=== PATIENT | male | born 1980 | race Caucasian/White ===

== ENCOUNTER → 2020-08-21 10:35 | Outpatient (CLI) | payer OTHER, SELFPAY ==
[2020-08-21] MEDS: COVID-19 VACC(MODERNA-1)/PF 100 MCG/0.5 ML VIAL IM (10:44)
== END ==
PROVIDERS: Visit Provider Internal Medicine
DX: Z23 Encounter for immunization (principal)
CPT/HCPCS: 0011A; 91301

== ENCOUNTER → 2020-09-18 13:02 | Outpatient (CLI) | payer OTHER, SELFPAY ==
[2020-09-18] MEDS: COVID-19 VACC #2, MRNA(MOD) 100 MCG/0.5 ML VIAL IM (13:06)
== END ==
PROVIDERS: Visit Provider Internal Medicine
DX: Z23 Encounter for immunization (principal)
CPT/HCPCS: 0012A; 91301

== ENCOUNTER → 2023-01-26 18:12 | Outpatient (CLI) | payer OTHER, SELFPAY ==
--- NOTE | 2023-01-26 18:14 | DI.RAD.S_ITS ---
PROCEDURE: XR HIP W PEL IF DONE LT 2V INDICATIONS: Left hip pain TECHNIQUE: 2 views of the hip were acquired. COMPARISON: None. FINDINGS: Bones: Minimal bilateral hip arthrosis. No displaced fracture or dislocation. Soft tissues: No suspicious calcifications. Suspected pelvic phleboliths. IMPRESSION: No acute radiographic abnormality. Minimal hip degenerative changes. If there is high concern for further derangement, consider MRI evaluation. Dictated by: Mat Bee M.D. on 01/27/2023 at 8:34 Approved by: Mat Bee M.D. on 01/27/2023 at 8:35
== END ==
PROVIDERS: Referring Provider Family Medicine; Visit Provider Family Medicine
DX: M25.552 Pain in left hip (principal)
CPT/HCPCS: 73502

== ENCOUNTER → 2023-12-07 | Outpatient (CLI) | payer OTHER, SELFPAY ==
--- NOTE | 2023-12-07 14:45 | DI.RAD.S_ITS ---
PROCEDURE: XR FOOT LT MIN 3V INDICATIONS: left foot swelling, pain in distal 1st metatarsal TECHNIQUE: 3 views of the foot were acquired. COMPARISON: None. FINDINGS: Bones: No fractures or dislocations. No suspicious bony lesions. Soft tissues: No tibiotalar joint effusion. Achilles tendon appears normal. IMPRESSION: No acute bony abnormality. Dictated by: Yared Moore M.D. on 12/07/2023 at 17:04 Approved by: Yared Moore M.D. on 12/07/2023 at 17:04
== END ==
LOC: RAD 14:44
PROVIDERS: Referring Provider Family Medicine; Visit Provider Family Medicine
DX: M79.672 Pain in left foot (principal); M79.89 Other specified soft tissue disorders
CPT/HCPCS: 73630